=== PATIENT | male | born 1960 | race Caucasian/White ===

== ENCOUNTER 2020-01-17 15:43 | Emergency (ER) | payer BC, SELFPAY ==
[2020-01-17 16:03] VITALS: BP 123/72; PULSE 68; RESP 20; TEMP 37; O2SAT 98
--- NOTE | 2020-01-17 16:08 | ED.WOUNDLAC ---
HPI - Wound/Laceration General Chief Complaint: Wound/Laceration Stated Complaint: right leg laceration Time Seen by Provider: 01/17/20 16:08 Source: patient Mode of arrival: ambulatory Limitations: no limitations History of Present Illness HPI narrative: Brennen Andrade is a 59 yo male with no known PMH who comes to express care with a 2 week old laceration of R lower extremity that now looks infected. Has not seen a physician in 15 years although claims to have one. He denies any hypertension diabetes high cholesterol and stated that he is perfectly healthy, but he has neurological symptoms such as hesitation speech and difficulty answering questions Related Data Allergies Allergy/AdvReac Type Severity Reaction Status Date / Time No Known Allergies Allergy NONE Unverified 12/11/18 21:43 Review of Systems Review of Systems: Narrative: CONSTITUTIONAL: Denies fever, chills, sweats. EYES: Denies visual changes, redness, discharge. ENT: Denies rhinorrhea, congestion, sore throat, otalgia. CARDIOVASCULAR: Denies chest pain, palpitations, edema. RESPIRATORY: Denies dyspnea, wheezing, cough GASTROINTESTINAL: Denies abdominal pain, nausea, vomiting, diarrhea. GENITOURINARY: Denies dysuria, hematuria, abnormal discharge SKIN: Denies rash or itching. 2 small wounds to the lower right extremity with dehiscence and redness NEUROLOGIC: Denies numbness, or focal weakness. PSYCHIATRIC: Denies anxiety or depression. Patient appears to have difficulty verbalizing PMFSH Family History Family History Grandparent Hypertension Family history of lung cancer Family history of malignant neoplasm of ovary Mother Family history of malignant neoplasm of uterus Other Diabetes mellitus Social History Social History Smoking status: Never smoker Second hand tobacco smoke exposure: No Alcohol intake: never Comments At time of signature, I agree with nursing past medical, surgical, social and family history. There is no relevant family history pertinent to the presenting complaint. Exam Narrative: Exam Narrative: GENERAL: This is a well-nourished, well-developed patient, in mild distress. HEAD: normocephalic, atraumatic. EYES:Sclera clear/white. Vision is grossly intact. Squints when talking with chronic drooping right eyelid EARS: External ears normal, auditory canals clear and without drainage, TMs normal without perforation. Hearing grossly intact. NOSE: External nose normal without nasal discharge, nares without redness, no rhinorrhea. THROAT: Mucous membranes moist, NECK: Neck supple, CARDIOVASCULAR: Regular rate and rhythm without murmurs, gallops, or rubs. RESPIRATORY: Clear to auscultation. Breath sounds equal bilaterally. No wheezes, rales, or rhonchi. GASTROINTESTINAL: Abdomen soft, , SKIN: warm, intact with no suspicious lesions or rash, good texture and turgor. Dehisced 2 x 1 and 1 x 1 cm wounds on anterior tibia of right leg, dorsal scabbing, erythema surrounding wounds, patient denies pain even with palpation NEURO: awake, alert, and oriented to person, place and time. There were no obvious focal neurologic abnormalities. Steady gait EXTREMITIES: Normal range of motion. 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
== END 2020-01-17 16:23 | disposition home or self-care (01) ==
PROVIDERS: Emergency Provider Nurse Practitioner; PCP Family Medicine
DX: L03.115 Cellulitis of right lower limb (principal)
CPT/HCPCS: 99213; G0463

== ENCOUNTER 2021-09-10 02:45 | Day surgery (SDC) | payer BC, SELFPAY ==
[2021-08-31 14:10] VITALS: BMI 25.8
[2021-09-10 11:28] VITALS: BP 115/69; PULSE 77; RESP 18; TEMP 36.6; O2SAT 100
--- NOTE | 2021-09-10 11:31 | P.PNAN_ITS ---
Anes - Initial Pre Proc Eval Procedure: Operation Date: 09/10/21 13:00 Proposed Procedures p Screening Colonoscopy - Jimmy Aleman MD Date/Time: 09/10/21 11:31 Surgeon: Jimmy Aleman MD Pre Op Diagnosis: neoplasm screening Patient Data Age: 60 Gender: M Height: 1.73 m Weight: 63.8 kg Last Vital Signs Temp 36.6 C 09/10/21 11:28 Pulse 77 09/10/21 11:28 Resp 18 09/10/21 11:28 BP 115/69 09/10/21 11:28 Pulse Ox 100 09/10/21 11:28 Allergies Allergy/AdvReac Type Severity Reaction Status Date / Time No Known Allergies Allergy NONE Verified 09/10/21 11:27 Home Medications Medication Instructions Recorded Confirmed Type aspirin 81 mg tablet,delayed 81 mg PO DAILY 02/27/20 08/31/21 History release famotidine 10 mg tablet 10 mg PO DAILY 02/27/20 08/31/21 History loratadine 10 mg tablet 10 mg PO DAILY 02/27/20 08/31/21 History Patient hx anesthesia problems: none Family hx anesthesia problems: none Results Review: All pre-operative results and documents have been reviewed as part of the pre-operative evaluation. [facility] Past Medical History Medical History Environmental allergies GERD without esophagitis Raynauds phenomenon Surgical History Surgical History History of eye surgery History of foot surgery right History of hand surgery left Family History Family History Grandparent Hypertension Family history of lung cancer Family history of malignant neoplasm of ovary Mother Family history of malignant neoplasm of uterus Other Diabetes mellitus Social History Social History Smoking status: Never smoker Second hand tobacco smoke exposure: No Alcohol intake: never Substance use: never Substance use type: does not use Living arrangements: with family Gender identity (if verbalized by the patient): Male Spiritual care concerns: No Anes - Eval Final PreProcedure Day of Procedure 09/10/21 11:31 Patient weight: normal Heart: regular rate and rhythm Lungs: clear to auscultation Airway: Mallampati scale class II Neurological: alert and oriented Last oral intake: >/= 8 hours ASA classification: II Emergent: no Anesthetic plan: proceed Anesthesia type and monitoring: general GIVS and standard monitoring Results Review: All pre-operative results and documents have been reviewed as part of the pre-operative evaluation. Informed Consent: The patient's anesthetic plan and its attendant risks and benefits were discussed with the patient/family/POA. Questions were solicited and answers provided to the satisfaction of the patient/family/POA.
[2021-09-10] MEDS: LACTATED RINGERS 1,000 ML 150 ML IV CONT (11:33)
--- NOTE | 2021-09-10 11:37 | WPDGICN ---
Assessment and Plan Assessment and plan (1) Encounter for screening colonoscopy: Code(s): Z12.11 - Encounter for screening for malignant neoplasm of colon Status: Acute Assessment and Plan: Patient presents for screening colonoscopy today. He has never previously had screening. Appears to be at average risk for colon polyps. GI Consult Note Consult date/time: 09/10/21 11:37 HPI: Brennen Andrade is a 60 year old male Presents for screening colonoscopy. Patient states that his weight appetite and bowel movements are normal. He denies abdominal pain. He has had no bleeding. Family history is noncontributory. Past medical history is significant for hand injury in the auger for which she has had surgery many years ago. Review of Systems Review of Systems: All systems reviewed & are unremarkable except as noted in HPI and below PMFSH Past Medical History Medical History (Updated 09/10/21 @ 11:39 by Jimmy Aleman MD) Environmental allergies GERD without esophagitis Raynauds phenomenon Surgical History Surgical History History of eye surgery History of foot surgery right History of hand surgery left Family History Family History Grandparent Hypertension Family history of lung cancer Family history of malignant neoplasm of ovary Mother Family history of malignant neoplasm of uterus Other Diabetes mellitus Social History Social History Smoking status: Never smoker Second hand tobacco smoke exposure: No Alcohol intake: never Substance use: never Substance use type: does not use Living arrangements: with family Gender identity (if verbalized by the patient): Male Spiritual care concerns: No Meds Home Medications and Allergies Home Medications Medication Instructions Recorded Confirmed Type aspirin 81 mg tablet,delayed 81 mg PO DAILY 02/27/20 08/31/21 History release famotidine 10 mg tablet 10 mg PO DAILY 02/27/20 08/31/21 History loratadine 10 mg tablet 10 mg PO DAILY 02/27/20 08/31/21 History Allergies Allergy/AdvReac Type Severity Reaction Status Date / Time No Known Allergies Allergy NONE Verified 09/10/21 11:27 Vital Signs Vital Signs - 24 hr 09/10/21 11:28 Temperature 97.8 F Pulse Rate 77 Respiratory Rate 18 Blood Pressure 115/69 Pulse Oximetry 100 Exam Narrative: Physical exam reveals patient to be alert. Vital signs stable. HEENT exam unremarkable. Patient is anicteric. Lungs are clear to auscultation and percussion. Heart is without murmur or extra sounds. Abdominal exam bowel sounds present soft nontender with no hepatosplenomegaly. Digital external rectal exam is normal.
[2021-09-10 11:59] VITALS: BP 113/69; PULSE 72; RESP 16; O2SAT 100
[2021-09-10 12:09] VITALS: BP 102/68; PULSE 76; RESP 17; O2SAT 99
[2021-09-10 12:19] VITALS: BP 130/79; PULSE 67; RESP 19; O2SAT 99
== END 2021-09-10 12:50 | disposition home or self-care (01) ==
PROVIDERS: PCP Family Medicine; Visit Provider Internal Medicine Gastroenterology
PROC: 0DJD8ZZ Inspection of Lower Intestinal Tract, Via Natural or Artificial Opening Endoscopic (ICD-10-PCS; CPT 45378; principal; 2021-09-10 13:00)
DX: Z12.11 Encounter for screening for malignant neoplasm of colon (principal); K64.8 Other hemorrhoids; K21.9 Gastro-esophageal reflux disease without esophagitis; I73.00 Raynaud's syndrome without gangrene; Z79.82 Long term (current) use of aspirin
CPT/HCPCS: 45378; J2704; J7120

== ENCOUNTER 2024-10-30 13:44 | Emergency (ER) | payer OTHER, BC, SELFPAY ==
--- NOTE | ~2024-10-30 | XR_ITS ---
XR hand LT min 3V Ordering provider: Zach Strickland MD History: . 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 Comparison: August 25, 2008 FINDINGS: BONES: Fusion of the scaphoid and trapezium bone is noted. No acute fracture or dislocation. JOINT SPACES: Osteoarthritic changes of the first carpometacarpal joint is seen. Osteoarthritic weinberg es of the first metacarpophalangeal joint. Osteoarthritic changes of the distal interphalangeal joint s. SOFT TISSUES: Unremarkable. IMPRESSION: No acute osseous abnormality left hand. Polyarticular osteoarthritic changes. Reviewed, dictated and finalized at location A.
[2024-10-30 13:45] VITALS: BP 134/96; PULSE 88; RESP 18; TEMP 36.5; O2SAT 98
--- NOTE | 2024-10-30 13:58 | ED_ITS ---
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 Time Seen by Provider: 10/30/24 13:53 Source: patient Mode of arrival: ambulatory Related Data Home Medications ?Medication ?Instructions ?Recorded ?Confirmed ?Last Taken ?Type aspirin 81 mg tablet,delayed 81 mg PO DAILY 02/27/20 08/31/21 09/09/21 History release (Adult Aspirin Regimen) famotidine 10 mg tablet (Pepcid AC) 10 mg PO DAILY 02/27/20 08/31/21 09/09/21 History loratadine 10 mg tablet (Claritin) 10 mg PO DAILY 02/27/20 08/31/21 09/09/21 History Allergies Allergy/AdvReac Type Severity Reaction Status Date / Time No Known Allergies Allergy NONE Verified 12/01/21 13:26 [facility] Past Medical History Medical History (Updated 10/30/24 @ 15:43 by Zach Strickland MD) Raynauds phenomenon GERD without esophagitis Environmental allergies Surgical History Surgical History (System 12/01/21 @ 13:26 by Berta Sanchez) History of hand surgery left History of foot surgery right History of eye surgery Family History Family History (System 12/01/21 @ 13:26 by Berta Sanchez) Grandparent Hypertension Family history of lung cancer Family history of malignant neoplasm of ovary Mother Family history of malignant neoplasm of uterus Other Diabetes mellitus Social History Social History (System 12/01/21 @ 13:26 by Berta Sanchez) Smoking status: Never smoker Second hand tobacco smoke exposure: No Alcohol intake: never Substance use: never Substance use type: does not use Living arrangements: with family Gender identity (if verbalized by the patient): Male Spiritual care concerns: No Course Vital Signs Vital signs: Vital Signs Temperature 36.5 C 10/30/24 13:45 Pulse Rate 88 10/30/24 13:45 Respiratory Rate 18 10/30/24 13:45 Blood Pressure 134/96 H 10/30/24 13:45 Pulse Oximetry 98 10/30/24 13:45 Oxygen Delivery Room Air 10/30/24 13:45 Temperature 36.5 C 10/30/24 14:17 Pulse Rate 80 10/30/24 14:17 Respiratory Rate 16 10/30/24 14:17 Blood Pressure 140/70 10/30/24 14:17 Pulse Oximetry 100 10/30/24 14:17 Oxygen Delivery Room Air 10/30/24 14:17 Procedures Laceration Laceration 1: Date: 10/30/24 Time: 15:45 Site: hand Side (If applicable): left Size (cm): 2.5 Description: irregular and clean Depth: simple, single layer Local Anesthetic: lidocaine 1% and with epi Amount of anesthesia used (mL): 5 Pre-repair: wound explored and irrigated ====== Skin Level ====== Skin layer closed with: nylon Size (cm): 6-0 Number of sutures: 5 ====== Subcutaneous Layer ====== ====== Muscle Layer ====== ====== Tendon Layer ====== Dressing: PART OF THE LACERATION IS VERY SUPERFICIAL, SUTURE THROUGH THE SKIN WAS NOT POSSIBLE, THE SKIN THAT BROKEN AT LEAST TWICE DURING SUTURING. Discharge Plan Discharge Clinical Impression: Hand laceration Patient Disposition: Home Condition: Stable Instructions: Antibiotic Form, Laceration (DC) Additional Instructions: RETURN IF SYMPTOMS ARE WORSENING , CALL YOUR FAMILY PHYSICIAN FOR APPOINTMENT, TAKE TYLENOL NEEDED FOR ACHES AND PAIN, CONTINUE HOME MEDICATIONS. REMOVE SUTURES IN 8 DAYS Patient Language: Swedish Prescriptions: New cephalexin 500 mg capsule 500 mg PO Q6H Qty: 28 0RF No Action loratadine [Claritin] 10 mg tablet 10 mg PO DAILY aspirin [Adult Aspirin Regimen] 81 mg tablet,delayed release (DR/EC) 81 mg PO DAILY famotidine [Pepcid AC] 10 mg tablet 10 mg PO DAILY Follow-up/Referrals: Corin An MD [Primary Care Provider] -
[2024-10-30 14:17] VITALS: BP 140/70; PULSE 80; RESP 16; TEMP 36.5; O2SAT 100
[2024-10-30] MEDS: TETANUS,DIPHTHERIA,AC PERTUSSIS ADULT (0.5 ML) BOOSTRIX IM (14:51)
--- OUTSIDE RECORDS SUMMARY | 2024-10-30 15:29 | XMS_ITS | Clinical Summary ---
Author Organization [facility] Address [address] [place] [id number] Care Team Providers Care Director Of Slot Operations Name Role Phone Sanjeev Mehta MD Primary Care Provider [phone] Social History Tobacco Use Types Packs/Day Years Used Date Smoking Tobacco: Never Assessed Sex and Gender Information Value Date Recorded Sex Assigned at Not on file Legal Sex Male 5:55 PM CDT Gender Identity Not on file Sexual Orientation Not on file Plan of Treatment Health Maintenance Due Date Last Done Comments Colorectal Cancer Screening Colonoscopy (10 Years) 1959 Annual Physical 11/03/1962 Hepatitis C 11/03/1977 DTaP, Tdap and Td Vaccines ( 1 - Tdap) 11/03/1978 Pneumococcal Vaccine: 50+ Ye ars (1 of 1 - PCV) 11/03/2009 Zoster Vaccines (1 of 2) 11/03/2009 COVID-19 Vaccine ( - 2023-2 5 season) 2024 RSV Immunization or 60+ Years (1 - 1-dose 75+ series) 11/03/2034 Meningococcal B Vaccine Aged Out No l onger eligible based on patient's age to complete this topic Meningococcal Vaccine Aged Out No carlene jose eligible based on patient's age to complete this topic RSV Immunizations Under 20 Months Aged Out No longer eligible based on patient's age to complete this topic Care Teams Director Of Slot Operations Relationship Specialty Start Date End Date Sanjeev Mehta MD [address] [place] [address] PCP - General 12/21/13
[2024-10-30 15:51] VITALS: BP 131/83; PULSE 76; RESP 15; O2SAT 97
--- OUTSIDE RECORDS SUMMARY | 2024-10-30 16:20 | XMS_ITS | Clinical Summary ---
Author Organization [facility] Address [address] [place] [id number] Care Team Providers Care Placement Specialist Name Role Phone Sanjeev Mehta MD Primary Care Provider [phone] Social History Tobacco Use Types Packs/Day Years [...] age to complete this topic Care Teams Placement Specialist Relationship Specialty Start Date End Date Sanjeev Mehta MD [address] [place] [address] PCP - General 12/21/13
== END 2024-10-30 15:55 | disposition home or self-care (01) ==
PROVIDERS: Emergency Provider Emergency Medicine; PCP Family Medicine
DX: S61.012A Laceration without foreign body of left thumb without damage to nail, initial encounter (principal); Z23 Encounter for immunization; I73.00 Raynaud's syndrome without gangrene; K21.9 Gastro-esophageal reflux disease without esophagitis; W31.89XA Contact with other specified machinery, initial encounter
CPT/HCPCS: 12001; 73130; 90471; 90715; 99283; J2004

== ENCOUNTER 2025-02-04 08:25 | Outpatient (CLI) | payer MEDICARE, SELFPAY ==
--- OUTSIDE RECORDS SUMMARY | 2025-02-04 08:42 | XMS_ITS | Clinical Summary ---
Author Organization [facility] Address [address] [place] [id number] Care Team Providers Care Fancy Stitcher Name Role Phone Sanjeev Mehta MD Primary Care Provider [phone] Social History Tobacco Use Types Packs/Day Years Used Date Smoking Tobacco: Never Assessed Sex and Gender Information Value Date Recorded Sex Assigned at Not on file Legal Sex Male 5:55 PM CDT Gender Identity Not on file Sexual Orientation Not on file Plan of Treatment Health Maintenance Due Date Last Done Comments Colorectal Cancer Screening Colonoscopy (10 Years) 1960 Hepatitis C 11/03/1977 DTaP, Tdap and Td [...] age to complete this topic Care Teams Fancy Stitcher Relationship Specialty Start Date End Date Sanjeev Mehta MD [address] [place] [address] PCP - General 12/21/13
--- NOTE | 2025-02-04 09:13 | ECHO_ITS ---
Patient Info Name: Brennen Andrade Age: 64 years : 1960 Gender: Male Ht: 70 in Wt: 165 lbs BSA: 1.93 m2 HR: 60 bpm BP: 106 / 65 mmHg Technical Quality: Good Exam Date: 02/04/2025 9:19 AM Patient Status: O Admit Date: 02/04/2025 Exam Type: CA echo doppler color flow Complete two-dimensional, color flow and Doppler transthoracic echocardiogram is performed. Belt Splicer: Josephine Valdez Attending Provider: Malcolm Gorman DO Summary 1. Complete two-dimensional, color flow and Doppler transthoracic echocardiogram is performed. 2. Left ventricular chamber dimension is normal. 3. Left ventricular systolic function is normal, estimated at 60-65. 4. The left ventricular diastolic function is grade I diastolic dysfunction. 5. E/e' 10 is mildly elevated. 6. There is mild tricuspid valve regurgitation. 7. No pulmonary hypertension, estimated pulmonary arterial systolic pressure is 27 mmHg. 8. There is trace pulmonic regurgitation. Left Ventricle E/e' 10 is mildly elevated. Left ventricular chamber dimension is normal. Left ventricular systolic function is normal, estimated at 60-65. The left ventricular diastolic function is grade I diastolic dysfunction. Right Ventricle Right ventricular chamber dimension is normal. Right ventricular systolic function is normal and with normal TAPSE 1.8 cm. Left Atria Left atrial chamber dimension is normal. Right Atria Right atrial chamber dimension is normal. Aortic Valve The aortic valve is trileaflet. There is no aortic valve stenosis. There is no aortic valve regurgitation. Pulmonic Valve There is trace pulmonic regurgitation. Mitral Valve There is no mitral valve stenosis. There is no mitral valve regurgitation. Tricuspid Valve There is mild tricuspid valve regurgitation. No pulmonary hypertension, estimated pulmonary arterial systolic pressure is 27 mmHg. Pericardium/Pleural There is no pericardial effusion. Inferior Vena Cava Normal inferior vena cava with >50% collapse upon inspiration consistent with normal right atrial pressure, 5 mmHg. Aorta The aortic root size at the sinus of Valsalva is normal. Left Ventricular Outflow Tract Name Value Normal LVOT 2D LVOT Diameter 2.0 cm LVOT Doppler LVOT Peak Velocity 128 cm/s LVOT Peak Gradient 7 mmHg LVOT Mean Gradient 3 mmHg LVOT VTI 28 cm LVOT Stroke Volume 90 ml LVOT CO 5.4 l/min LVOT CI 2.8 l/min/m2 Pulmonic Valve Name Value Normal RVOT Doppler RVOT Peak Velocity 74 cm/s RVOT Peak Gradient 2 mmHg PV Doppler PV Peak Velocity 111 cm/s PV Peak Gradient 5 mmHg PV Regurgitation Doppler GA Peak End Diastolic Velocity 97 cm/s Mitral Valve Name Value Normal MV Diastolic Function MV E Peak Velocity 71 cm/s MV A Peak Velocity 90 cm/s MV E/A 0.8 MV Decel Time (PW) 199 ms MV Annular TDI MV E/e' (Septal) 14.1 MV E/e' (Lateral) 8.2 MV E/e' (Average) 11.1 Tricuspid Valve Name Value Normal TV Regurgitation Doppler TR Peak Velocity 236 cm/s TR Peak Gradient 22 mmHg Estimated PAP/RSVP RA Pressure 5 mmHg <=5 PA Systolic Pressure 27 mmHg <36 RV Systolic Pressure 27 mmHg <36 Aortic Valve Name Value Normal AV Doppler AV Peak Velocity 145 cm/s AV Peak Gradient 8 mmHg AV Area (Cont Eq Alberto) 2.9 cm2 AV DI (Alberto) 0.88 AV Regurgitation 2D LVOT Area 3.3 cm2 Ventricles Name Value Normal LV Dimensions 2D/MM IVS Diastolic Thickness (2D) 1.0 cm 0.6-1.0 LVID Diastole (2D) 4.2 cm 4.2-5.8 LVIW Diastolic Thickness (2D) 1.1 cm 0.6-1.0 LVID Systole (2D) 2.6 cm 2.5-4.0 LVOT Diameter 2.0 cm LV Mass (2D Cubed) 143.54 g 88.00-224.00 LV Mass Index (2D Cubed) 75 g/m2 49-115 Relative Wall Thickness (2D) 0.52 <=0.42 LV Fractional Shortening/Ejection Fraction 2D/MM LV Fractional Shortening (2D) 39 % 25-43 LV EF (2D Teichholz) 69 % LV Diastolic Volume (4C MOD) 92 ml LV EF (4C MOD) 60 % LV Diastolic Volume (2C MOD) 116 ml LV EF (2C MOD) 60 % LV Diastolic Volume (BP MOD) 105 ml 62-150 LV Diastolic Volume Index (BP MOD) 55 ml/m2 34-74 LV Systolic Volume (BP MOD) 44 ml 21-61 LV Systolic Volume Index (BP MOD) 23 ml/m2 11-31 LV EF (BP MOD) 58 % 52-72 LV Diastolic Length (4C) 8.1 cm LV Systolic Length (4C) 6.4 cm LV Stroke Volume (4C MOD) 55 ml Atria Name Value Normal LA Dimensions LA Volume (4C A-L) 39 ml LA Volume (BP A-L) 42 ml RA Dimensions RA Systolic Major Glover Length (4C) 4.4 cm 2.1-2.7 RA Area (4C) 15.2 cm2 <=18.0 Report Signatures
== END 2025-02-04 08:26 | disposition home or self-care (01) ==
LOC: ANHCARD 08:39
PROVIDERS: PCP Family Medicine; Visit Provider Internal Medicine Cardiovascular Disease
DX: R00.2 Palpitations (principal); I07.1 Rheumatic tricuspid insufficiency
CPT/HCPCS: 93306

== ENCOUNTER 2025-02-12 08:49 | Outpatient (CLI) | payer MEDICARE, SELFPAY | END 2025-02-12 08:50 | disposition home or self-care (01) | LOC: ANHAUDIO 08:49 | PROVIDERS: PCP Family Medicine; Visit Provider Nurse Practitioner Family | DX: H90.3 Sensorineural hearing loss, bilateral (principal); H74.8X1 Other specified disorders of right middle ear and mastoid; Z97.4 Presence of external hearing-aid | CPT/HCPCS: 92557; 92567 ==

== ENCOUNTER 2025-03-17 11:00 | Outpatient (RCR) | payer SELFPAY | END 2025-03-17 23:59 | disposition home or self-care (01) | LOC: ANHAUDIO 11:00 | PROVIDERS: PCP Family Medicine; Visit Provider Family Medicine | DX: Z46.1 Encounter for fitting and adjustment of hearing aid (principal) | CPT/HCPCS: 99199; V5261 ==

== ENCOUNTER 2025-06-17 11:15 | Outpatient (CLI) | payer MEDICARE, SELFPAY ==
[2025-06-17 13:10] LABS: Alanine Aminotransferase 23 U/L (6-50); Albumin Level 4.4 g/dL (3.5-5.1); Alkaline Phosphatase 73 U/L (38-126); Anion Gap 3 mmol/L (4-12); Aspartate Amino Transferase 32 U/L (17-59); Bilirubin,Total 0.7 mg/dL (0.2-1.3); Blood Urea Nitrogen 15 mg/dL (9-20); Calcium 9.1 mg/dL (8.4-10.2); Carbon Dioxide 32 mmol/L (22-30); Chloride 103 mmol/L (98-107); Estimated Glomerular Filt Rate > 60; Glucose 86 mg/dL (65-110); Potassium 4.5 mmol/L (3.4-5.0); Sodium 138 mmol/L (137-145); Total Protein 8.3 g/dL (6.3-8.2)
[2025-06-17 15:07] LABS: Hemoglobin A1C 6.0 % (<5.7)
== END 2025-06-17 11:16 | disposition home or self-care (01) ==
LOC: ANHGOSHLAB 11:16
PROVIDERS: PCP Family Medicine; Visit Provider Family Medicine
DX: R73.03 Prediabetes (principal); I10 Essential (primary) hypertension
CPT/HCPCS: 36415; 80053; 83036